=== PATIENT | female | born 1985 | race Caucasian/White ===

== ENCOUNTER 2016-12-01 03:23 | Inpatient (IN) | payer MEDICAID, OTHER ==
[2016-12-01] MEDS ORDERED: Ampicillin 2 GM in Sodium Chloride 0.9% 100 ML IV ONE (04:13)
[2016-12-01] MEDS ORDERED: Carboprost Tromethamine 250 MCG/1 ML Amp IM PRN (04:13)
[2016-12-01] MEDS ORDERED: Water For Irrigation,Sterile 1,000 ML Container IRR PRN (04:13)
[2016-12-01] MEDS ORDERED: Misoprostol 200 MCG Tab PO PRN (04:13)
[2016-12-01] MEDS ORDERED: Sodium Chloride 0.9% 2.5 ML Syringe FLUSH PRN (04:13)
[2016-12-01] MEDS ORDERED: Nalbuphine 10 MG/1 ML Vial IVPUSH PRN (04:13)
[2016-12-01] MEDS ORDERED: Lidocaine 1% 50 ML MDV INJECT PRN (04:13)
[2016-12-01] MEDS ORDERED: Sodium Chloride 0.9% 10 ML Syringe FLUSH PRN (04:13)
[2016-12-01] MEDS ORDERED: Butorphanol 1 MG/ML SDV IVPUSH PRN (04:13)
[2016-12-01] MEDS ORDERED: Methylergonovine 0.2 MG/1 ML Amp IM PRN (04:13)
[2016-12-01] MEDS ORDERED: Oxytocin/Lactated Ringers 30 UNIT/500 ML BAG IV SCH (04:15)
[2016-12-01] MEDS ORDERED: Lactated Ringers 1,000 ML IV SCH (04:15)
--- NOTE | 2016-12-01 05:06 | PCM.LDHP ---
L&D History of Present Illness - General Date of Service: 12/01/16 Admit Problem/Dx: Patient Status Order with Admit Dx/Problem 12/01/16 03:58 Patient Status [ADT] Routine 12/01/16 04:14 Patient Status [ADT] Routine Admission Diagnosis/Problem Admission Diagnosis/Problem Source of Information: Patient History Limitations: Reports: No limitations - History of Present Illness Improves with: Reports: None Worsens with: Reports: None Associated Symptoms: Reports: N - Related Data Allergies/Adverse Reactions: Allergies Allergy/AdvReac Type Severity Reaction Status Date / Time No Known Allergies Allergy Verified 12/01/16 03:57 H&P Review of Systems - Review of Systems: Review Of Systems: See Below General: Reports: no symptoms HEENT: Reports: no symptoms Pulmonary: Reports: No Symptoms Cardiovascular: Reports: no symptoms Gastrointestinal: Reports: No symptoms Genitourinary: Reports: no symptoms Musculoskeletal: Reports: no symptoms Skin: Reports: no symptoms Psychiatric: Reports: no symptoms Neurological: Reports: No Symptoms Hematologic/Lymphatic: Reports: no symptoms Immunologic: Reports: no symptoms L&D Exam - Exam Exam: See Below - Vital Signs Weight: 120.202 kg - OB Specific Fundal Height in cm: 39 Contraction Intensity: Moderate to Strong movement: active heart tones: present heart tones per min: 129 Heart Rate (FHR) Variability: Minimal (0-5 bpm) Presentation: Vertex - Muller Score Muller Score Effacement: >80% Muller Score Dilation: > 5 cm Muller Score 's Station: -1 ,0 - Patient Data Lab Results last 24 hrs: Laboratory Results - last 24 hr 12/01/16 Range/Units 03:50 Membrane Rupture POSITIVE Problem List Initiated/Reviewed/Updated: Yes Orders Last 24hrs: Active Orders 24 hr Category Date Time Status Patient Status [ADT] Routine ADT 12/01/16 03:58 Active Patient Status [ADT] Routine ADT 12/01/16 04:14 Active Heart Tones [RC] CONTINUOUS Care 12/01/16 04:14 Active Non Stress Test [RC] PER UNIT ROUTINE Care 12/01/16 03:58 Active Non Stress Test [RC] PER UNIT ROUTINE Care 12/01/16 04:14 Active May Shower [RC] ASDIRECTED Care 12/01/16 04:14 Active Notify Provider [RC] PRN Care 12/01/16 04:14 Active Up ad Yaquelin [RC] ASDIRECTED Care 12/01/16 03:58 Active Up ad Yaquelin [RC] ASDIRECTED Care 12/01/16 04:14 Active Vaginal Exam [RC] Click To Edit Care 12/01/16 03:58 Active Vaginal Exam [RC] PRN Care 12/01/16 04:14 Active Vital Signs [RC] PER UNIT ROUTINE Care 12/01/16 03:58 Active Vital Signs [RC] PER UNIT ROUTINE Care 12/01/16 04:14 Active Clear Liquid Diet [DIET] Diet 12/01/16 Breakfast Active CBC W/O DIFF,HEMOGRAM [HEME] Routine Lab 12/01/16 04:30 Received TYPE AND SCREEN [BBK] Routine Lab 12/01/16 04:30 Received Ampicillin 1 gm Med 12/01/16 08:00 Active Sodium Chloride 0.9% [Normal Saline] 50 ml IV Q4H Butorphanol [Stadol] Med 12/01/16 04:13 Active 1 mg IVPUSH Q1H PRN Carboprost Tromethamine [Hemabate DS] Med 12/01/16 04:13 Active 250 mcg IM ASDIRECTED PRN Lactated Ringers [Ringers, Lactated] 1,000 ml Med 12/01/16 04:15 Active IV ASDIRECTED Lidocaine 1% [Xylocaine 1%] Med 12/01/16 04:13 Active 50 ml INJECT .ONCE PRN Methylergonovine [Methergine] Med 12/01/16 04:13 Active 0.2 mg IM ASDIRECTED PRN Misoprostol [Cytotec] Med 12/01/16 04:13 Active 200 mcg PO .ONCE PRN Nalbuphine [Nubain] Med 12/01/16 04:13 Active 10 mg IVPUSH Q1H PRN Oxytocin/Lactated Ringers [Pitocin in LR 30 Units/500 Med 12/01/16 04:15 Active ML] 30 unit in 500 ml IV TITRATE Sodium Chloride 0.9% [Saline Flush] Med 12/01/16 04:13 Active 10 ml FLUSH ASDIRECTED PRN Sodium Chloride 0.9% [Saline Flush] Med 12/01/16 04:13 Active 2.5 ml FLUSH ASDIRECTED PRN Water For Irrigation,Sterile [Sterile Water for Med 12/01/16 04:13 Active Irrigation] 1,000 ml IRR ASDIRECTED PRN Scalp Electrode [WOMSER] Per Unit Routine Oth 12/01/16 04:14 Ordered Peripheral IV Insertion Adult [OM.PC] Routine Oth 12/01/16 04:14 Ordered Resuscitation Status Routine Resus Stat 12/01/16 03:58 Ordered Medication Orders Butorphanol Tartrate (Stadol) 1 mg IVPUSH Q1H PRN PRN Reason: Pain Carboprost Tromethamine (Hemabate Ds) 250 mcg IM ASDIRECTED PRN PRN Reason: Post Hemorrhage Lactated Ringer's (Ringers, Lactated) 1,000 mls @ 150 mls/hr IV ASDIRECTED CANDIE Oxytocin/Lactated Ringer's (Pitocin In Lr 30 Units/500 Ml) 30 unit in 500 mls @ 2 mls/hr IV TITRATE CANDIE; 2 MUNITS/MIN PRN Reason: Protocol Stop: 12/02/16 04:14 Ampicillin Sodium 1 gm/ Sodium (Chloride) 50 mls @ 100 mls/hr IV Q4H CANDIE Lidocaine HCl (Xylocaine 1%) 50 ml INJECT .ONCE PRN PRN Reason: Laceration repair Methylergonovine Maleate (Methergine) 0.2 mg IM ASDIRECTED PRN PRN Reason: Post Hemorrhage Misoprostol (Cytotec) 200 mcg PO .ONCE PRN PRN Reason: Post Hemorrhage Nalbuphine HCl (Nubain) 10 mg IVPUSH Q1H PRN PRN Reason: Pain (severe 7-10) Stop: 12/01/16 06:14 Sodium Chloride (Saline Flush) 10 ml FLUSH ASDIRECTED PRN PRN Reason: Keep Vein Open Sodium Chloride (Saline Flush) 2.5 ml FLUSH ASDIRECTED PRN PRN Reason: Keep Vein Open Sterile Water (Sterile Water For Irrigation) 1,000 ml IRR ASDIRECTED PRN PRN Reason: delivery Assessment/Plan Comment:: Term P4004 have no care in this pregnancu. She wase seen once in this in the clinic and was told she is due on 12/04/16. in active labor.
[2016-12-01] MEDS ORDERED: Benzocaine/Menthol 20%-0.5% Spray 78 GM Cannister TOP PRN (05:09)
[2016-12-01] MEDS ORDERED: Docusate Sodium 100 MG Cap PO PRN (05:09)
[2016-12-01] MEDS ORDERED: Acetaminophen 500 MG Tab PO PRN (05:09)
[2016-12-01] MEDS ORDERED: oxyCODONE 5 MG Tab PO PRN (05:09)
[2016-12-01] MEDS ORDERED: Lanolin 100% Cream 7 GM Tube TOP PRN (05:09)
[2016-12-01] MEDS ORDERED: Bisacodyl 10 MG Supp RECTAL PRN (05:09)
[2016-12-01] MEDS ORDERED: Witch Hazel Medicated Pads 40/Jar TOP PRN (05:09)
[2016-12-01] MEDS ORDERED: Ibuprofen 400 MG Tab PO PRN (05:09)
--- NOTE | 2016-12-01 05:09 | PCM.DEL ---
L & D Note - General Info Date of Service: 12/01/16 - Delivery Note Labor: spontaneous Delivery Outcome: Livebirth Presentation: Vertex Nuchal cord: none Anesthesia Type: None Episiotomy Type: None Laceration: none Placenta: intact, spontaneous Resuscitation needed: No Provider: Rivera Luna Score 1 min: 8 Score 5 min: 9 Induction Criteria - Muller Score Muller Score Dilation: > 5 cm Muller Score Effacement: >80% Muller Score 's Station: -1 ,0 Muller Score Consistency: Firm Muller Score Cervix Position: Anterior Muller Score Total: 10 Muller Score Presenting Part: Reports: Cephalic - Induction Gestational Age >/= 39 wks: Yes Reassuring monitoring strip: Yes Absence of tachy systole: Yes - Augmentation Reassuring monitoring strip: Yes Absence of tachy systole: Yes Vacuum Extractor Progress Note - Alternative Labor Strategies Considered Alternative labor strategies considered:: Reports: yes Strategies considered:: Reports: Contraction intensity adequate, Position changes used to facilitate rotation & descent, Empty bladder, Rest Indications considered:: Reports: yes Time out:: Reports: yes - Patient Prepared Patient prepared:: Reports: yes Informed consent:: Reports: Yes Risks: Reports: yes Anesthesia/analgesia adequate:: Reports: yes - Probability of Success High probability of success:: Reports: yes Patient diabetic:: Reports: no Pelvis adequate:: Reports: yes Asynclitic:: Reports: no - Application Time Maximum application time & number of pop-offs predetermined:: Reports: yes - Exit Strategy Exit strategy available:: Reports: yes and resuscitation teams readily available:: Reports: yes - General Info Date of Service: 12/01/16 Functional Status: Reports: pain controlled - Review of Systems General: Reports: No Symptoms HEENT: Reports: no symptoms Pulmonary: Reports: no symptoms Cardiovascular: Reports: No Symptoms Gastrointestinal: Reports: No symptoms Genitourinary: Reports: no symptoms Musculoskeletal: Reports: no symptoms Skin: Reports: no symptoms Neurological: Reports: No Symptoms Psychiatric: Reports: no symptoms - Patient Data Weight - most recent: 120.202 kg Lab Results last 24 hrs: Laboratory Results - last 24 hr 12/01/16 12/01/16 Range/Units 03:50 04:30 WBC 9.65 (4.0-11.0) K/uL RBC 4.54 (4.30-5.90) M/uL Hgb 11.9 L (12.0-16.0) g/dL Hct 38.6 (36.0-46.0) % MCV 85.0 (80.0-98.0) fL MCH 26.2 L (27.0-32.0) pg MCHC 30.8 L (31.0-37.0) g/dL RDW Std Deviation 52.3 (28.0-62.0) fl RDW Coeff of Christian 17 H (11.0-15.0) % Plt Count 225 (150-400) K/uL MPV 10.30 (7.40-12.00) fL Nucleated RBC % 0.0 /100WBC Nucleated RBCs # 0 K/uL Membrane Rupture POSITIVE Med Orders - Current: Current Medications Butorphanol Tartrate (Stadol) 1 mg IVPUSH Q1H PRN PRN Reason: Pain Carboprost Tromethamine (Hemabate Ds) 250 mcg IM ASDIRECTED PRN PRN Reason: Post Hemorrhage Lactated Ringer's (Ringers, Lactated) 1,000 mls @ 150 mls/hr IV ASDIRECTED CANDIE Oxytocin/Lactated Ringer's (Pitocin In Lr 30 Units/500 Ml) 30 unit in 500 mls @ 2 mls/hr IV TITRATE CANDIE; 2 MUNITS/MIN PRN Reason: Protocol Stop: 12/02/16 04:14 Ampicillin Sodium 1 gm/ Sodium (Chloride) 50 mls @ 100 mls/hr IV Q4H CANDIE Lidocaine HCl (Xylocaine 1%) 50 ml INJECT .ONCE PRN PRN Reason: Laceration repair Methylergonovine Maleate (Methergine) 0.2 mg IM ASDIRECTED PRN PRN Reason: Post Hemorrhage Misoprostol (Cytotec) 200 mcg PO .ONCE PRN PRN Reason: Post Hemorrhage Nalbuphine HCl (Nubain) 10 mg IVPUSH Q1H PRN PRN Reason: Pain (severe 7-10) Stop: 12/01/16 06:14 Sodium Chloride (Saline Flush) 10 ml FLUSH ASDIRECTED PRN PRN Reason: Keep Vein Open Sodium Chloride (Saline Flush) 2.5 ml FLUSH ASDIRECTED PRN PRN Reason: Keep Vein Open Sterile Water (Sterile Water For Irrigation) 1,000 ml IRR ASDIRECTED PRN PRN Reason: delivery Discontinued Medications Ampicillin Sodium 2 gm/ Sodium (Chloride) 100 mls @ 200 mls/hr IV ONETIME ONE Stop: 12/01/16 04:42 - Exam General: alert, oriented HEENT: Pupils equal, Pupils reactive, EOMI, Mucous membr. moist/pink Neck: supple Lungs: Clear to auscultation, Normal respiratory effort Cardiovascular: Regular Rate, Regular Rhythm Abdomen: bowel sounds present, soft, no tenderness, no distension (Female) Exam: Normal external exam, Normal speculum exam, Normal bimanual exam Back Exam: normal inspection, full range of motion Extremities: no edema Skin: warm, dry, intact Wound/Incisions: healing well Neurological: no new focal deficit Psy/Mental Status: alert, normal affect, normal mood - Problem List Review Problem List Initiated/Reviewed/Updated: Yes - My Orders Last 24 Hours: My Active Orders 12/01/16 03:58 Patient Status [ADT] Routine Non Stress Test [RC] PER UNIT ROUTINE Up ad Yaquelin [RC] ASDIRECTED Vaginal Exam [RC] Click To Edit Vital Signs [RC] PER UNIT ROUTINE Resuscitation Status Routine 12/01/16 04:13 Butorphanol [Stadol] 1 mg IVPUSH Q1H PRN Carboprost Tromethamine [Hemabate DS] 250 mcg IM ASDIRECTED PRN Lidocaine 1% [Xylocaine 1%] 50 ml INJECT .ONCE PRN Methylergonovine [Methergine] 0.2 mg IM ASDIRECTED PRN Misoprostol [Cytotec] 200 mcg PO .ONCE PRN Nalbuphine [Nubain] 10 mg IVPUSH Q1H PRN Sodium Chloride 0.9% [Saline Flush] 10 ml FLUSH ASDIRECTED PRN Sodium Chloride 0.9% [Saline Flush] 2.5 ml FLUSH ASDIRECTED PRN Water For Irrigation,Sterile [Sterile Water for Irrigation] 1,000 ml IRR ASDIRECTED PRN 12/01/16 04:14 Patient Status [ADT] Routine Heart Tones [RC] CONTINUOUS Non Stress Test [RC] PER UNIT ROUTINE May Shower [RC] ASDIRECTED Notify Provider [RC] PRN Up ad Yaquelin [RC] ASDIRECTED Vaginal Exam [RC] PRN Vital Signs [RC] PER UNIT ROUTINE Scalp Electrode [WOMSER] Per Unit Routine Peripheral IV Insertion Adult [OM.PC] Routine 12/01/16 04:15 Lactated Ringers [Ringers, Lactated] 1,000 ml IV ASDIRECTED Oxytocin/Lactated Ringers [Pitocin in LR 30 Units/500 ML] 30 unit in 500 ml IV TITRATE 12/01/16 04:30 TYPE AND SCREEN [BBK] Routine 12/01/16 08:00 Ampicillin 1 gm Sodium Chloride 0.9% [Normal Saline] 50 ml IV Q4H 12/01/16 Breakfast Clear Liquid Diet [DIET] - Assessment Assessment:: no Episiotomy no laceration - Plan Plan:: Term P4004 have no care in this pregnancu. She wase seen once in this in the clinic and was told she is due on 12/04/16. in active labor.
[2016-12-01] MEDS: Acetaminophen 500 MG Tab PO PRN (05:27)
[2016-12-01] MEDS: Ibuprofen 800 MG Tab PO PRN ×2 (09:36→16:48)
--- NOTE | 2016-12-01 11:06 | OR ---
SURGEON: Rivera Luna MD DATE OF PROCEDURE: DELIVERY NOTE: Ms. Barry is a 31-year-old patient. She is para 4-0-0-4, this is her fifth . She had no care in this . However, she claimed that she was seen in the office once in either late June or early July and she was told at that time, her due date is in 12/04/2016. There is no record available and, however, the patient is presented in active labor with spontaneous rupture of the membrane, that was confirmed. At the time of admission, the patient was 5 to 6 cm, complete vertex, zero station, and moving rather rapidly, and contraction is regular and strong heart rate was category 1. The patient is started on antibiotic according to the protocol because her GBS status is unknown. The patient progressed rather rapidly and then she had normal spontaneous vaginal delivery of a female fetus. The delivery of the fetus was attended by the nurses and the score reported to be 8 and 9 and the weight 12 pounds. However, the placenta was not delivered, one time I got there, and I proceeded to deliver the placenta. There was no laceration and there is no perineal or vaginal. Estimated blood loss is 350 mL. There was no complication in this . ANGLE / CLEMENTINE /[id number]
[2016-12-01] MEDS: Ampicillin 1 GM in Sodium Chloride 0.9% 50 ML IV SCH ×3 (13:39→20:03)
[2016-12-02] MEDS: Ibuprofen 800 MG Tab PO PRN ×2 (00:03→14:45)
[2016-12-02] MEDS: Acetaminophen 500 MG Tab PO PRN (04:31)
--- NOTE | 2016-12-02 08:23 | PCM.DCSUM1 ---
Discharge Summary - Hospital Course Free Text/Narrative:: Discharge home with . Follow up 6 weeks or sooner as needed. - Discharge Data Discharge Date: 12/02/16 Discharge Disposition: Home, Self-Care 01 Condition: Good - Discharge Diagnosis/Problem(s) (1) (spontaneous vaginal delivery) SNOMED Code(s): 87956299 ICD Code: O80 - ENCOUNTER FOR FULL-TERM UNCOMPLICATED DELIVERY Status: Acute Priority: Medium Current Visit: Yes - Patient Instructions Diet: Usual Diet as Tolerated Activity: As Tolerated, Rest and Relax Today Driving: Do Not Drive Showering/Bathing: May Shower Notify Provider of: Fever, Increased Pain, Swelling and Redness, Nausea and/or Vomiting - Discharge Plan Referrals: [facility] [Outside] Rivera Luna MD [Physician] - 01/09/17 9:45 am - Discharge Summary/Plan Comment Discharge Summary/Plan Comment: Discharge home with . Follow up 6 weeks or sooner as needed. - General Info Date of Service: 12/02/16 Functional Status: Reports: pain controlled, tolerating diet, ambulating, urinating (+) - Review of Systems General: Reports: No Symptoms HEENT: Reports: no symptoms Pulmonary: Reports: no symptoms Cardiovascular: Reports: No Symptoms Gastrointestinal: Reports: No symptoms Genitourinary: Reports: no symptoms Musculoskeletal: Reports: no symptoms Skin: Reports: no symptoms Neurological: Reports: No Symptoms Psychiatric: Reports: no symptoms - Patient Data Vitals - Most Recent: Last Vital Signs Temp 36.8 C 12/02/16 05:16 Pulse 68 12/02/16 05:16 Resp 17 12/02/16 05:16 BP 117/69 12/02/16 05:16 Pulse Ox 98 12/02/16 05:16 Weight - Most Recent: 120.202 kg Lab Results - Last 24 hrs: Laboratory Results - last 24 hr 12/01/16 12/02/16 Range/Units 04:30 04:18 Hgb 10.8 L (12.0-16.0) g/dL Hct 35.3 L (36.0-46.0) % Blood Type O POSITIVE Antibody Screen NEGATIVE Med Orders - Current: Current Medications Acetaminophen (Tylenol Extra Strength) 500 mg PO Q4H PRN PRN Reason: Pain Acetaminophen (Tylenol Extra Strength) 1,000 mg PO Q4H PRN PRN Reason: Pain Last Admin: 12/02/16 04:31 Dose: 1,000 mg Benzocaine/Menthol (Dermoplast Pain Relief 20%-0.5% Empire) 78 gm TOP ASDIRECTED PRN PRN Reason: Perineal Comfort Measure Bisacodyl (Dulcolax) 10 mg RECTAL .ONCE PRN PRN Reason: Constipation Butorphanol Tartrate (Stadol) 1 mg IVPUSH Q1H PRN PRN Reason: Pain Carboprost Tromethamine (Hemabate Ds) 250 mcg IM ASDIRECTED PRN PRN Reason: Post Hemorrhage Docusate Sodium (Colace) 100 mg PO BID PRN PRN Reason: Constipation Emollient Ointment (Lansinoh Hpa) 0 gm TOP ASDIRECTED PRN PRN Reason: Sore Nipples Last Admin: 12/01/16 19:06 Dose: 1 applic Lactated Ringer's (Ringers, Lactated) 1,000 mls @ 150 mls/hr IV ASDIRECTED CANDIE Last Admin: 12/01/16 04:30 Dose: 150 mls/hr Ibuprofen (Motrin) 400 mg PO Q4H PRN PRN Reason: Pain Ibuprofen (Motrin) 800 mg PO Q6H PRN PRN Reason: Pain Last Admin: 12/02/16 00:03 Dose: 800 mg Lidocaine HCl (Xylocaine 1%) 50 ml INJECT .ONCE PRN PRN Reason: Laceration repair Methylergonovine Maleate (Methergine) 0.2 mg IM ASDIRECTED PRN PRN Reason: Post Hemorrhage Misoprostol (Cytotec) 200 mcg PO .ONCE PRN PRN Reason: Post Hemorrhage Oxycodone HCl (Oxycodone) 5 mg PO Q2H PRN PRN Reason: Pain Last Admin: 12/01/16 05:28 Dose: 5 mg Sodium Chloride (Saline Flush) 10 ml FLUSH ASDIRECTED PRN PRN Reason: Keep Vein Open Sodium Chloride (Saline Flush) 2.5 ml FLUSH ASDIRECTED PRN PRN Reason: Keep Vein Open Sterile Water (Sterile Water For Irrigation) 1,000 ml IRR ASDIRECTED PRN PRN Reason: delivery Witch Serenity (Tucks) 1 pad TOP ASDIRECTED PRN PRN Reason: comfort care Discontinued Medications Ampicillin Sodium 2 gm/ Sodium (Chloride) 100 mls @ 200 mls/hr IV ONETIME ONE Stop: 12/01/16 04:42 Last Admin: 12/01/16 13:37 Dose: Not Given Oxytocin/Lactated Ringer's (Pitocin In Lr 30 Units/500 Ml) 30 unit in 500 mls @ 2 mls/hr IV TITRATE CANDIE; 2 MUNITS/MIN PRN Reason: Protocol Stop: 12/02/16 04:14 Last Admin: 12/01/16 05:49 Dose: 999 munits/min, 999 mls/hr Ampicillin Sodium 1 gm/ Sodium (Chloride) 50 mls @ 100 mls/hr IV Q4H CANDIE Last Admin: 12/01/16 20:03 Dose: Not Given Nalbuphine HCl (Nubain) 10 mg IVPUSH Q1H PRN PRN Reason: Pain (severe 7-10) Stop: 12/01/16 06:14 - Exam General: Reports: alert, oriented, cooperative, no acute distress Lungs: Reports: Normal respiratory effort (Female) Exam: Vaginal bleeding Rectal (Female) Exam: Deferred Back Exam: Reports: full range of motion Extremities: Reports: no edema, normal pulses Skin: Reports: warm, dry, intact Wound/Incisions: Reports: healing well Neurological: Reports: no new focal deficit Psy/Mental Status: Reports: alert, normal affect, normal mood *Q Meaningful Use (DIS) - VTE *Q VTE Criteria *Q: - Stroke *Q Stroke Criteria *Q: - AMI *Q AMI Criteria *Q:
[2016-12-02 17:53] VITALS: BP 126/78
== END 2016-12-02 15:45 | disposition home or self-care (01) | DRG 775 ==
LOC: MW.OBCHECK 03:23 → MW.OB 03:23 → MW.OBCHECK 04:14 → MW.OB 04:14 → OBSVTOIN 04:53 → MW.OB 04:53 → EDBD 04:53 → MERGE 04:53 → MW.OB 09:59
PROVIDERS: ADMIT Obstetrics & Gynecology; ATTEND Obstetrics & Gynecology
PROC: 10E0XZZ Delivery of Products of Conception, External Approach (ICD-10-PCS; principal; 2016-12-01)
DX: O42.02 Full-term premature rupture of membranes, onset of labor within 24 hours of rupture (principal); O09.33 Supervision of pregnancy with insufficient antenatal care, third trimester; Z3A.40 40 weeks gestation of pregnancy; Z37.0 Single live birth
CPT/HCPCS: 36415; 59025; 84112; 85014; 85018; 85027; 86850; 86900; 86901; A9270-GY; J7120